=== PATIENT | female | born 1990 | race Hispanic/Latino ===

== ENCOUNTER 2017-08-28 10:02 | Emergency (ER) | payer BC ==
[2017-08-28 10:10] VITALS: BP 101/58; PULSE 72; TEMP 97; O2SAT 98
[2017-08-28 10:11] VITALS: BMI 21.9
[2017-08-28] MEDS ORDERED: Tdap Vaccine 0.5 ml Vial (10-64 yrs) IM ONE ×2 (10:42→11:44)
[2017-08-28] MEDS ORDERED: Lidocaine 2% Inj (20ml) INFIL ONE (10:43)
--- NOTE | 2017-08-28 10:46 | ED PDOC ---
Upper Extremity Pain/Injury Time Seen by Provider: 08/28/17 10:43 Chief Complaint (Nursing): Upper Extremity Problem/Injury Chief Complaint (Provider): hand laceration History Per: Patient (26 y/o female here with left hand injury that occurred when accidentally cutting self while de-pitting avocado. Is right hand dominant.) Past Medical History Reviewed: Historical Data, Nursing Documentation, Vital Signs Vital Signs: Last Vital Signs Temp 97 F L 08/28/17 10:09 Pulse 72 08/28/17 10:09 Resp BP 101/58 L 08/28/17 10:09 Pulse Ox 98 08/28/17 10:09 - Family History Family History: States: No Known Family Hx - Immunization History Hx Tetanus Toxoid Vaccination: (Unsure) - Allergies Allergies/Adverse Reactions: Allergies Allergy/AdvReac Type Severity Reaction Status Date / Time No Known Allergies Allergy Verified 08/28/17 10:41 Review of Systems ROS Statement: Except As Marked, All Systems Reviewed And Found Negative Skin: Positive for: Other (laceration) Physical Exam - Reviewed Nursing Documentation Reviewed: Yes Vital Signs Reviewed: Yes - Physical Exam Appears: Positive for: Well, Non-toxic, No Acute Distress Head Exam: Positive for: ATRAUMATIC, NORMAL INSPECTION, NORMOCEPHALIC Skin: Positive for: Normal Color, Warm, DRY Eye Exam: Positive for: EOMI, Normal appearance, PERRL ENT: Positive for: Normal ENT Inspection Neck: Positive for: Normal, Painless ROM Cardiovascular/Chest: Positive for: Regular Rate, Rhythm Respiratory: Positive for: CNT, Normal Breath Sounds Gastrointestinal/Abdominal: Positive for: Normal Exam, Bowel Sounds, Soft Back: Positive for: Normal Inspection Extremity: Positive for: Normal ROM, Other (1.5 cm laceration interwebspace fourth and fifth digit. decreased sensation noted medial aspect of fifth digit. ) Neurologic/Psych: Positive for: Alert, Oriented - ECG O2 Sat by Pulse Oximetry: 98 - Progress ED Course And Treament: tdap 0.5 ml IM x 1 dose Disposition - Clinical Impression Clinical Impression: Hand laceration - Patient ED Disposition Is Patient to be Admitted: No - Disposition Referrals: Wagner Gee MD [Staff Provider] - Disposition: Routine/Home Disposition Time: 11:08 Condition: FAIR Additional Instructions: RETURN TO ED/PMD/URGENT CARE FOR REMOVAL OF SUTURES F/U WITH HAND SPECIALIST FOR FURTHER EVALUATION OF LOSS OF SENSATION Instructions: Laceration Repair Forms: [employer] (Palestinian) Procedure: Wound Repair - Time Performed Time Performed: 10:46 - Time Out Time Out: Site verified - Consent Obtained Consent obtained: Verbal - Performed by Performed by: Mid-level Provider - Indications Indication(s):: Laceration - Location Location:: Left, Hand Finger:: Ring Shape:: Linear Dimensions Length cm: 1.5 cm Depth:: Epidermis - Anesthetic Technique Anesthetic Technique: Local Local/Regional Anesthetic:: Lidocaine 2% - Irrigated Irrigated with ml of normal saline: 150 ml - Complexity Complexity:: Simple (one layer) - Wound repair method Sutures:: # (four), Size (4-0), Type (prolene), Technique (interrupted.) - Patient tolerated procedure Patient Tolerated Procedure:: Well
[2017-08-28] MEDS ORDERED: Lidocaine 1% Inj (20ml) ONE (10:53)
[2017-08-28] MEDS ORDERED: Lidocaine 1% Inj (20ml) INFIL ONE (12:00)
== END 2017-08-28 11:55 | disposition home or self-care (01) ==
LOC: H.ER 10:02
DX: S61.412A Laceration without foreign body of left hand, initial encounter (principal); W26.0XXA Contact with knife, initial encounter; Y92.89 Other specified places as the place of occurrence of the external cause